=== PATIENT | female | born 1985 | race Two or more races ===

== ENCOUNTER → 2020-03-22 07:52 | Outpatient (CLI) | payer OTHER ==
[~2020-03-22 07:52] MED LIST: DICYCLOMINE HCL10 MG; PEPTO-BISMOL262 M1
== END | disposition home or self-care (01) ==
LOC: LAB 07:52
DX: J11.1 Influenza due to unidentified influenza virus with other respiratory manifestations (principal); Z20.828 Contact with and (suspected) exposure to other viral communicable diseases; R10.84 Generalized abdominal pain; R10.2 Pelvic and perineal pain; Z11.59 Encounter for screening for other viral diseases; R53.81 Other malaise

== ENCOUNTER 2020-03-22 14:15 | Emergency (ER) | payer OTHER ==
[~2020-03-22] VITALS: Ht 154.9 cm; Wt 53.5 kg
[2020-03-22] MEDS ORDERED: PEPTO-BISMOL262 M1 (14:30)
[2020-03-22] MEDS ORDERED: DICYCLOMINE HCL10 MG (14:30)
== END 2020-03-22 20:09 | disposition home or self-care (01) ==
LOC: ER 14:15
DX: A90 Dengue fever [classical dengue] (principal); D69.49 Other primary thrombocytopenia; B34.9 Viral infection, unspecified; Z03.818 Encounter for observation for suspected exposure to other biological agents ruled out

== ENCOUNTER 2020-03-24 08:24 | Outpatient (CLI) | payer OTHER | END 2020-03-24 15:00 | disposition home or self-care (01) | LOC: LAB 08:24 | PROVIDERS: ATTEND Internal Medicine | DX: A90 Dengue fever [classical dengue] (principal) ==

== ENCOUNTER 2022-09-20 07:00 | Day surgery (SDC) | payer OTHER ==
[~2022-09-20 07:00] MED LIST changes: +MULTIPLE VITAM1 EAC2 PO
== END 2022-09-20 11:25 | disposition home or self-care (01) ==
LOC: CIR.AMB 07:00
PROVIDERS: ATTEND Obstetrics & Gynecology
DX: N84.0 Polyp of corpus uteri (principal); Z20.822 Contact with and (suspected) exposure to COVID-19; Z91.011 Allergy to milk products; D64.89 Other specified anemias

== ENCOUNTER 2023-09-21 08:41 | Outpatient (CLI) | payer OTHER | END 2023-09-21 08:49 | disposition home or self-care (01) | LOC: MAMO-SONO 08:41 | PROVIDERS: ATTEND Obstetrics & Gynecology | DX: N60.11 Diffuse cystic mastopathy of right breast (principal) ==